=== PATIENT | male | born 1960 | race Caucasian/White ===

== ENCOUNTER 2024-11-16 17:31 | Inpatient (IN) ==
[2024-11-16 18:23] LABS: Hematocrit (blood only) 47.6 % (42.0-52.0); Hemoglobin 16.7 g/dl (14.0-18.0); Immature Granulocytes # (auto) 0.04 K/uL (0.01-0.20); Immature Granulocytes % (auto) 0.3 %; Mean Corpuscular Hemoglobin 30.3 pg (25.0-34.0); Mean Corpuscular Volume 86.2 fL (80.0-100.0); Platelet Count 197 K/uL (130-400); RDW Standard Deviation 39.8 fL (36.4-46.3); Red Blood Count 5.52 M/uL (4.70-6.10); White Blood Count 11.54 K/ul (4.8-10.8)
[2024-11-16 18:41] LABS: Alanine Aminotransferase 20.0 U/L (7-52); Albumin Globulin Ratio 1.2 (0.9-2); Alkaline Phosphatase 45.0 U/L (34-104); Anion Gap 10.0 (3-11); Bilirubin,Total 0.7 mg/dl (0.2-1.0); Blood Urea Nitrogen 27.0 mg/dl (6-23); Calcium 9.8 mg/dl (8.6-10.3); Carbon Dioxide 26.0 mmol/L (21-32); Chloride 101.0 mmol/L (98-107); Creatinine Clr Calc Pharmacy 142.5 ml/min; Globulin 3.5 gm/dl (2.5-4.0); Glucose 127.0 mg/dl (70-99(Fasting)); Potassium 3.7 mmol/L (3.5-5.1); Sodium 137.0 mmol/L (136-145); Total Protein 7.7 gm/dl (6.0-8.3)
[2024-11-16 18:51] LABS: INR 1.0 (0.9-1.1); Partial Thromboplastin Time 26 Seconds (21-31); Prothrombin Time 10.5 Seconds (9.0-12.0)
[2024-11-16] MEDS: ASPIRIN 81 MG CHEW PO STA (19:51)
--- NOTE | 2024-11-16 20:12 | XRay Report ---
Single frontal view of the chest No comparison Impression No acute pulmonary pathology Electronically signed by Chris Westfall 11-16-2024 8:10 PM
[2024-11-16 21:19] LABS: Cholesterol 181.0 mg/dl (0-200); HDL Cholesterol 50.0 mg/dl; Triglycerides 77.0 mg/dl (0-150)
--- NOTE | 2024-11-16 21:44 | History & Physical Report ---
Date of Service November 16, 2024 Assessment & Plan (1) Elevated troponin: (2) Exertional dyspnea: (3) Hypertension: Plan This is a 64 y/o M PMHx HTN, HLD who is presented to ED with exertional dyspnea. Patient states he first noticed symptoms yesterday when he was working around the house, climbing ladders when he felt chest tightness and was more out of breath than usual and was associated with dizziness. The second episode occurred tonight when patient was at work and was taking out garbage/walking up small hills when he noticed the onset of similar chest tightness and dyspnea. Pain is located below sternum, does not radiate, and is relieved with rest. Of note, patient states he had a charley horse in the right calf two days prior to symptom onset which has since resolved. Denies recent long-distance travel, immobilization periods, and recent surgery. Denies previous significant cardiac history. Denies alcohol and tobacco use, however does use medical marijuana. Denies nausea/vomiting/abdominal pain. Patient did have BL venous doppler completed 07/29/24 due to bilateral LE swelling noted at his PCP visit in July of this year, which has been read as negative for not DVT in BLE, above knee. ED labs showing initial elevated troponin 621.5 which up-trended to 680.6 CBC with slight elevation in WBC at 11.5, H&H 16.7 & 47.6. BMP nonactionable. EKG showing sinus tachycardia without evidence of infarct. CXR w/o acute pulmonary pathology. Patient is being admitted for evaluation of exertional dyspnea in the setting of elevated troponin. #chest pain/exertional dyspnea/elevated troponin - patient well-appearing on exam, responding appropriately, speaking in clear full sentences in no acute distress. He was without chest pain during my exam. Slightly hypertensive and remained tachycardiac at bedside. Concern at this time, given exertional chest pain and troponin elevation is possibly PE vs NSTEMI - venous doppler BL LE ordered and pending ; if needed can consider D-dimer vs CT PE - echo ordered and pending - begin heparin drip, ASA 81 mg daily - optimize BP control - can continue home lisinopril-HCTZ 20-25mg - cardiology consulted - NPO at midnight - EKG as needed for chest pain - O2 as needed - trend troponin - pain control with tylenol and morphine prn ; sublingual nitro prn - A1c, lipid panel ordered - may have to consider transitioning to high- intensity statin - CBC, BMP qAM #HTN - patient hypertensive on admission - 170s/100s while at bedside - continue home lisinopril-HCTZ 20-25 mg daily #HLD - repeat fasting lipid panel and A1c ordered - continue home pravastatin 10 mg daily - can consider high-intensity statin ; per PCP note, patient did not tolerate atorvastatin or rosuvastatin due to GI symptoms and joint pains DVT: heparin drip as above Dispo: PCU History of Present Illness Chief Complaint: exertional dyspnea Primary Care Provider: Lawson Vasquez DO Juan Luis Tafoya is a 64 y/o M PMHx HTN, HLD who is presented to ED with exertional dyspnea. Patient states he first noticed symptoms yesterday when he was working around the house, climbing ladders when he felt chest tightness and was more out of breath than usual and was associated with dizziness. The second episode occurred tonight when patient was at work and was taking out garbage/walking up small hills when he noticed the onset of similar chest tightness and dyspnea. Pain is located below sternum, does not radiate, and is relieved with rest. Of note, patient states he had a charley horse in the right calf two days prior to symptom onset which has since resolved. Denies recent long-distance travel, immobilization periods, and recent surgery. Denies previous significant cardiac history. Denies alcohol and tobacco use, however does use medical marijuana. Denies nausea/vomiting/abdominal pain. Patient did have BL venous doppler completed 07/29/24 due to bilateral LE swelling noted at his PCP visit in July of this year, which has been read as negative for not DVT in BLE, above knee. ED labs showing initial elevated troponin 621.5 which up-trended to 680.6 CBC with slight elevation in WBC at 11.5, H&H 16.7 & 47.6. BMP nonactionable. EKG showing sinus tachycardia without evidence of infarct. CXR w/o acute pulmonary pathology. Patient is being admitted for evaluation of exertional dyspnea in the setting of elevated troponin. Allergies Allergy/AdvReac Type Severity Reaction Status Date / Time No Known Drug Allergies Allergy Verified 07/22/24 13:57 Home Medications Medication Instructions Recorded Confirmed Type Medical Marijuana 1 dose PO UD PRN Pain 05/26/23 11/16/24 History tadalafil 10 mg tablet 10 mg PO DAILY PRN sexual activity 07/22/24 11/16/24 Rx #10 tabs lisinopril 20 1 tab PO DAILY 11/16/24 11/16/24 History mg-hydrochlorothiazide 25 mg tablet meloxicam 15 mg tablet 15 mg PO DAILY 11/16/24 11/16/24 History pravastatin 10 mg tablet 10 mg PO DAILY 11/16/24 11/16/24 History Past Med/Surg History Problem List Chest pain (Acute) Exertional dyspnea Elevated troponin Sensorineural hearing loss (SNHL) of both ears Colon cancer screening Encounter for pre-operative examination Pain in both feet Hypertension Hyperlipidemia Medical History Arthritis History of skull fracture born breach Surgical History History of colonoscopy 06/05/23, repeat 5 years 2028 History of tooth extraction H/O metal removed from eye History of myringotomy History of tonsillectomy History of laparoscopic cholecystectomy History of total knee replacement Left> September 30 2021 History of rotator cuff surgery left Family History Father Hypertension Other No family history of adverse response to anesthesia Denies family history of Ovarian cancer Prostate cancer Diabetes Myocardial infarction Breast cancer Lung cancer Colorectal cancer Stroke Social History Smoking Status: Current every day smoker Tobacco Type: Cigars Second Hand Exposure: No (in the past); Do You Dip or Chew Tobacco: No; Hx Alcohol Use: No Hx Substance Use: Yes Prescribed Medications: Marijuana Preferred Language: Armenian Visual Impairment: Diminished Hearing Ability: Normal Manager Law Required: No Beliefs That Will Affect Care: None marital status: Current Living Situation: Parent Current Living Situation Comment: with mother current occupational status: employed current occupation: [employer] - [employer] services How many Children do You have: 2 Feels Safe at Home: Yes Childhood Exposure to Second-Hand Smoke: No Diet: regular caffeine: Yes Dental Care, Regularly: Yes Physical Activity Frequency: Daily Seatbelt Use: always Sunscreen Use: Yes Assistive Devices: Glasses Review of Systems Review of Systems: All systems reviewed & are unremarkable except as noted in HPI & below Physical Exam Constitutional: WD/WN, vitals as above Eyes: PERRL, conjunctivae normal, anicteric sclerae Neck: trachea midline, no thyromegaly Respiratory: normal respiratory effort; no respiratory distress, no labored breathing and does not use accessory muscles Auscultation: lungs clear to auscultation bilaterally Cardiovascular: Rate/Rhythm: regular rate and regular rhythm Gastrointestinal (Abdomen): normal bowel sounds, soft, nontender, no hepatosplenomegaly Musculoskeletal: there is noticeable swelling and erythema of R calf > L ; no tenderness to palpation BL LE. Basilio sign negative BL Skin: no rashes, warm and dry Neurologic: PERRL, EOMI, accommodation nl, no face palsy, no dysarthria CN's II-XI intact bilaterally Psychiatric: A+Ox3, euthymic affect Results & Data Results & Data Vital Signs (Past 12 Hours) Vital Signs Temp Pulse Pulse Resp BP BP Pulse Ox 11/16/24 20:30 95 H 16 151/108 H 96 11/16/24 19:45 100 H 11/16/24 19:19 99 H 16 95 11/16/24 19:19 95 11/16/24 19:17 102 H 16 143/116 H 96 11/16/24 19:14 95 11/16/24 17:38 36.5 C 113 H 20 152/99 H 92 O2 Del Method 11/16/24 20:30 Room Air 11/16/24 19:45 11/16/24 19:19 Room Air 11/16/24 19:19 Room Air 11/16/24 19:17 Room Air 11/16/24 19:14 Room Air 11/16/24 17:38 Room Air Laboratory Results Laboratory Results WBC 11.54 K/ul (4.8-10.8) H 11/16/24 18:00 RBC 5.52 M/uL (4.70-6.10) 11/16/24 18:00 Hgb 16.7 g/dl (14.0-18.0) 11/16/24 18:00 Hct 47.6 % (42.0-52.0) 11/16/24 18:00 MCV 86.2 fL (80.0-100.0) 11/16/24 18:00 MCH 30.3 pg (25.0-34.0) 11/16/24 18:00 MCHC 35.1 g/dL (32.0-36.0) 11/16/24 18:00 RDW Std Deviation 39.8 fL (36.4-46.3) 11/16/24 18:00 RDW Coeff of Irma 12.7 % (11.5-14.5) 11/16/24 18:00 Plt Count 197 K/uL (130-400) 11/16/24 18:00 MPV 9.0 fL (9.4-12.4) L 11/16/24 18:00 Immature Gran % (Auto) 0.3 % 11/16/24 18:00 Neut % (Auto) 73.0 % 11/16/24 18:00 Lymph % (Auto) 17.8 % 11/16/24 18:00 Randall % (Auto) 7.4 % 11/16/24 18:00 Eos % (Auto) 1.2 % 11/16/24 18:00 Baso % (Auto) 0.3 % 11/16/24 18:00 Neut # (Auto) 8.42 K/uL (1.40-6.50) H 11/16/24 18:00 Lymph # (Auto) 2.05 K/uL (1.20-3.40) 11/16/24 18:00 Randall # (Auto) 0.85 K/uL (0.11-0.59) H 11/16/24 18:00 Eos # (Auto) 0.14 K/uL (0.00-0.50) 11/16/24 18:00 Baso # (Auto) 0.04 K/uL (0.00-0.20) 11/16/24 18:00 Immature Gran # (Auto) 0.04 K/uL (0.01-0.20) 11/16/24 18:00 PT 10.5 Seconds (9.0-12.0) 11/16/24 18:00 INR 1.0 (0.9-1.1) 11/16/24 18:00 APTT 26 Seconds (21-31) 11/16/24 18:00 PTT Ratio 1.0 11/16/24 18:00 Sodium 137 mmol/L (136-145) 11/16/24 18:00 Potassium 3.7 mmol/L (3.5-5.1) 11/16/24 18:00 Chloride 101 mmol/L (98-107) 11/16/24 18:00 Carbon Dioxide 26 mmol/L (21-32) 11/16/24 18:00 Anion Gap 10 (3-11) 11/16/24 18:00 BUN 27 mg/dl (6-23) H 11/16/24 18:00 Creatinine 0.72 mg/dl (0.6-1.4) 11/16/24 18:00 Est Cr Clr Drug Dosing 142.5 ml/min 11/16/24 18:00 eGFR 102.66 11/16/24 18:00 BUN/Creatinine Ratio 37.5 (10-20) H 11/16/24 18:00 Glucose 127 mg/dl (70-99(Fasting)) H 11/16/24 18:00 Calcium 9.8 mg/dl (8.6-10.3) 11/16/24 18:00 Total Bilirubin 0.7 mg/dl (0.2-1.0) 11/16/24 18:00 AST 20 U/L (13-39) 11/16/24 18:00 ALT 20 U/L (7-52) 11/16/24 18:00 Alkaline Phosphatase 45 U/L (34-104) 11/16/24 18:00 Troponin I High Sens 680.6 pg/ml (0-20) H* 11/16/24 18:00 B-Natriuretic Peptide 66 pg/ml (0-100) 11/16/24 14:45 Total Protein 7.7 gm/dl (6.0-8.3) 11/16/24 18:00 Albumin 4.2 gm/dl (3.4-5.0) 11/16/24 18:00 Globulin 3.5 gm/dl (2.5-4.0) 11/16/24 18:00 Albumin/Globulin Ratio 1.2 (0.9-2) 11/16/24 18:00 Triglycerides 77 mg/dl (0-150) 11/16/24 14:45 Cholesterol 181 mg/dl (0-200) 11/16/24 14:45 LDL Cholesterol, Calc 116 mg/dl 11/16/24 14:45 VLDL Cholesterol, Calc 15 mg/dl (0-30) 11/16/24 14:45 HDL Cholesterol 50 mg/dl 11/16/24 14:45 Cholesterol/HDL Ratio 3.6 (0-5) 11/16/24 14:45 Impressions Chest X-Ray 11/16/24 17:42 Single frontal view of the chest No comparison Impression No acute pulmonary pathology Electronically signed by Chris Westfall 11-16-2024 8:10 PM Supervising Physician Co-Signing Physician Notes Patient seen and examined, chart reviewed, case discussed with Dr. Landry and I agree with the assessment and plan as documented above. In brief, patient is here with exertional dyspnea, some chest discomfort noted over the last two days. Exam with warmth, redness and swelling of RLE Otherwise unremarkable - +S1/S2, regular, no m/r/g Lungs CTA Abd soft, NT/ND Labs and images reviewed Trop 621--> 680 Venous duplex RLE performed - read pending Assessment/Plan -Trend troponin to peak -Heparin gtt -Check 2D echo -Continue ASA, Pravastatin, Lisinopril -Remainder as above Resident Activity Tracking Resident Involvement: Resident Care Provided Care Provided: Adult Hospital Medicine
[2024-11-16] MEDS: Heparin IV Adult Wt-Based Standard w/ INITIAL Bolus Protocol IV STA (21:49)
[2024-11-16] MEDS: HEPARIN 25000 UNIT/500 ML D5W 25,000 UNITS/500 ML BAG IV SCH (21:57)
[2024-11-16] MEDS: HEPARIN SOD (PORCINE) 1000 UNIT/ML IV ONE (21:57)
[2024-11-16] MEDS ORDERED: MoRPHine SULFATE 2 MG/ML CARP IV PRN (22:29)
[2024-11-16] MEDS ORDERED: ONDANSETRON INJ 2 MG/ML 2 ML VIAL IV PRN (22:29)
[2024-11-16] MEDS ORDERED: NITROGLYCERIN SL 0.4 MG/TAB TAB SL PRN (22:29)
[2024-11-16] MEDS ORDERED: POLYETHYLENE (MIRALAX) 17 GM PACK PO PRN (22:29)
[2024-11-16] MEDS ORDERED: ACETAMINOPHEN 325 MG TAB PO PRN (22:29)
[2024-11-16] MEDS ORDERED: MELATONIN 3 MG TAB PO PRN (22:29)
--- NOTE | 2024-11-16 22:51 | Emergency Department Note ---
History of Present Illness General Chief Complaint: Cardiac Assessment Stated Complaint: COLD SWEATING, SOB, TIGHT CHEST Time Seen by Provider: 11/16/24 19:40 History of Present Illness Provider Complaint: chest pain Onset (ago): day(s) 2 Duration: intermittent Onset: during exertion Pain Location: substernal Pain Radiation: none Severity: severe Current Pain Intensity: 0 Quality: + aching, + heaviness and + dull Relieved By: + rest Exacerbated By: + exertion Context: no recent illness, no recent surgery, no recent immobilization, no recent travel, no trauma/injury or no new medications Associated symptoms: + diaphoresis and + dyspnea; no nausea, no vomiting or no palpitations Treatments prior to arrival: none Home Medications Medication Instructions Recorded Confirmed Type Medical Marijuana 1 dose PO UD PRN Pain 05/26/23 11/16/24 History tadalafil 10 mg tablet 10 mg PO DAILY PRN sexual activity 07/22/24 11/16/24 Rx #10 tabs lisinopril 20 1 tab PO DAILY 11/16/24 11/16/24 History mg-hydrochlorothiazide 25 mg tablet meloxicam 15 mg tablet 15 mg PO DAILY 11/16/24 11/16/24 History pravastatin 10 mg tablet 10 mg PO DAILY 11/16/24 11/16/24 History Allergies Allergy/AdvReac Type Severity Reaction Status Date / Time No Known Drug Allergies Allergy Verified 07/22/24 13:57 Past Med/Surg History Problem List (Updated 11/16/24 @ 22:51 by Kehinde Partida MD) Chest pain (Acute) Exertional dyspnea Elevated troponin Sensorineural hearing loss (SNHL) of both ears Colon cancer screening Encounter for pre-operative examination Pain in both feet Hypertension Hyperlipidemia Medical History Arthritis History of skull fracture born breach Surgical History History of colonoscopy 06/05/23, repeat 5 years 2028 History of tooth extraction H/O metal removed from eye History of myringotomy History of tonsillectomy History of laparoscopic cholecystectomy History of total knee replacement Left> September 30 2021 History of rotator cuff surgery left Family History Father Hypertension Other No family history of adverse response to anesthesia Denies family history of Ovarian cancer Prostate cancer Diabetes Myocardial infarction Breast cancer Lung cancer Colorectal cancer Stroke Social History Smoking Status: Current every day smoker Tobacco Type: Cigars Second Hand Exposure: No (in the past); Do You Dip or Chew Tobacco: No; Hx Alcohol Use: No Hx Substance Use: Yes Prescribed Medications: Marijuana Preferred Language: Romanian Visual Impairment: Diminished Hearing Ability: Normal Content Analyst Required: No Beliefs That Will Affect Care: None marital status: Current Living Situation: Parent Current Living Situation Comment: with mother current occupational status: employed current occupation: [employer] - [employer] services How many Children do You have: 2 Feels Safe at Home: Yes Childhood Exposure to Second-Hand Smoke: No Diet: regular caffeine: Yes Dental Care, Regularly: Yes Physical Activity Frequency: Daily Seatbelt Use: always Sunscreen Use: Yes Assistive Devices: Glasses Physical Exam Vital Signs Vital Signs - 24 hr 11/16/24 17:38 11/16/24 19:14 11/16/24 19:17 Temperature 36.5 C Temperature Source Temporal Artery Scan Pulse Rate 113 H Pulse Rate [Right Finger] 102 H Pulse Rhythm Pulse Rhythm [Right Finger] Regular Respiratory Rate 20 16 Respiratory Effort / Characteristics Non-Labored Spontaneous Respiratory Depth Normal Normal Respiratory Pattern Regular Blood Pressure 152/99 H Blood Pressure [Right Arm] 143/116 H Blood Pressure Mean 116 Blood Pressure Mean [Right Arm] 125 Pulse Oximetry 92 95 96 Oxygen Delivery Method Room Air Room Air Room Air Sepsis Recent Fever Within 48 Hours No Sepsis New/Unexplained Change in Mental Status N/A Sepsis Action Taken by Nursing No Action Required 11/16/24 19:19 11/16/24 19:19 11/16/24 19:45 Temperature Temperature Source Pulse Rate 99 H 100 H Pulse Rate [Right Finger] Pulse Rhythm Regular Pulse Rhythm [Right Finger] Respiratory Rate 16 Respiratory Effort / Characteristics Respiratory Depth Respiratory Pattern Blood Pressure Blood Pressure [Right Arm] Blood Pressure Mean Blood Pressure Mean [Right Arm] Pulse Oximetry 95 95 Oxygen Delivery Method Room Air Room Air Sepsis Recent Fever Within 48 Hours Sepsis New/Unexplained Change in Mental Status Sepsis Action Taken by Nursing 11/16/24 20:30 Temperature Temperature Source Pulse Rate Pulse Rate [Right Finger] 95 H Pulse Rhythm Pulse Rhythm [Right Finger] Regular Respiratory Rate 16 Respiratory Effort / Characteristics Non-Labored Respiratory Depth Normal Respiratory Pattern Blood Pressure Blood Pressure [Right Arm] 151/108 H Blood Pressure Mean Blood Pressure Mean [Right Arm] 122 Pulse Oximetry 96 Oxygen Delivery Method Room Air Sepsis Recent Fever Within 48 Hours Sepsis New/Unexplained Change in Mental Status Sepsis Action Taken by Nursing Physical Exam GENERAL: oriented to person, place, and time. appears well-developed and well- nourished. HENT: Exam performed. - Head: Normocephalic and atraumatic. EYES: Conjunctivae and EOM are normal. Right eye exhibits no discharge. Left eye exhibits no discharge. No scleral icterus. NECK: Normal range of motion. Neck supple. No JVD present. CV: Normal rate, regular rhythm, normal heart sounds and intact distal pulses. One Plus pitting edema of the bilateral lower extremities. Palpable radial pulses bue. PULM/CHEST: Effort normal and breath sounds normal. No respiratory distress. No stridor. no wheezes. no rales. ABD: The abdomen is soft. There is no tenderness. NEURO: Motor and sensation grossly intact. SKIN: Skin is warm and dry. He is not diaphoretic. PSYCH: normal mood and affect. Behavior is normal. Judgment and thought content normal. Course Administered Medications Heparin Sodium/Dextrose (Heparin 38597 Unit/500 Ml D5w) 25,000 units in 500 mls @ 35 mls/hr IV .[id number] [facility]; Protocol Stop: 12/16/24 21:14 Last Admin: 11/16/24 21:57 Dose: 1,750 units/hr, 35 mls/hr Documented By: MIKKI Co-signed By: PADMA Discontinued Medications Aspirin (Aspirin 81 Mg Chew) 324 mg PO NOW STA Stop: 11/16/24 19:47 Last Admin: 11/16/24 19:51 Dose: 324 mg Documented By: PADMA Heparin Sodium (Porcine) (Heparin Sod (Porcine) 1000 Unit/Ml) 1 units IV NOW ONE Stop: 11/16/24 21:12 Last Admin: 11/16/24 21:57 Dose: 8,000 units Documented By: MIKKI Co-signed By: PADMA Heparin Sodium/Dextrose (Heparin Iv Adult Wt-Based Standard W/ Initial Bolus Protocol) 1 each IV NOW STA; Protocol Stop: 11/16/24 20:54 Last Admin: 11/16/24 21:49 Dose: Not Given Documented By: MIKKI Medical Decision Making Laboratory Data Attestation: I reviewed the patient's lab results. 11/16/24 18:00 11/16/24 18:00 Labs: Lab Results 11/16/24 11/16/24 Range/Units 14:45 18:00 WBC 11.54 H (4.8-10.8) K/ul RBC 5.52 (4.70-6.10) M/uL Hgb 16.7 (14.0-18.0) g/dl Hct 47.6 (42.0-52.0) % MCV 86.2 (80.0-100.0) fL MCH 30.3 (25.0-34.0) pg MCHC 35.1 (32.0-36.0) g/dL RDW Std Deviation 39.8 (36.4-46.3) fL RDW Coeff of Irma 12.7 (11.5-14.5) % Plt Count 197 (130-400) K/uL MPV 9.0 L (9.4-12.4) fL Immature Gran % (Auto) 0.3 % Neut % (Auto) 73.0 % Lymph % (Auto) 17.8 % Spink % (Auto) 7.4 % Eos % (Auto) 1.2 % Baso % (Auto) 0.3 % Neut # (Auto) 8.42 H (1.40-6.50) K/uL Lymph # (Auto) 2.05 (1.20-3.40) K/uL Spink # (Auto) 0.85 H (0.11-0.59) K/uL Eos # (Auto) 0.14 (0.00-0.50) K/uL Baso # (Auto) 0.04 (0.00-0.20) K/uL Immature Gran # (Auto) 0.04 (0.01-0.20) K/uL PT 10.5 (9.0-12.0) Seconds INR 1.0 (0.9-1.1) APTT 26 (21-31) Seconds PTT Ratio 1.0 Sodium 137 (136-145) mmol/L Potassium 3.7 (3.5-5.1) mmol/L Chloride 101 (98-107) mmol/L Carbon Dioxide 26 (21-32) mmol/L Anion Gap 10 (3-11) BUN 27 H (6-23) mg/dl Creatinine 0.72 (0.6-1.4) mg/dl Est Cr Clr Drug Dosing 142.5 ml/min eGFR 102.66 BUN/Creatinine Ratio 37.5 H (10-20) Glucose 127 H (70-99(Fasting)) mg/dl Calcium 9.8 (8.6-10.3) mg/dl Total Bilirubin 0.7 (0.2-1.0) mg/dl AST 20 (13-39) U/L ALT 20 (7-52) U/L Alkaline Phosphatase 45 (34-104) U/L Troponin I High Sens 621.5 H* 680.6 H* (0-20) pg/ml B-Natriuretic Peptide 66 (0-100) pg/ml Total Protein 7.7 (6.0-8.3) gm/dl Albumin 4.2 (3.4-5.0) gm/dl Globulin 3.5 (2.5-4.0) gm/dl Albumin/Globulin Ratio 1.2 (0.9-2) Triglycerides 77 (0-150) mg/dl Cholesterol 181 (0-200) mg/dl LDL Cholesterol, Calc 116 mg/dl VLDL Cholesterol, Calc 15 (0-30) mg/dl HDL Cholesterol 50 mg/dl Cholesterol/HDL Ratio 3.6 (0-5) Imaging Data Chest x-ray: Attestation: I personally reviewed and interpreted this imaging study as follows: My impression: Chest x-ray negative. Airway clear. No pneumothorax. No consolidation. No cardiomegaly or cephalization.. No free air under the diaphragm. No fractures of the skeletal structures. Radiologist's impression: Chest X-Ray 11/16/24 17:42 Single frontal view of the chest No comparison Impression No acute pulmonary pathology Electronically signed by Chris Westfall 11-16-2024 8:10 PM ECG Data Attestation: I personally reviewed and interpreted this ECG as follows: Indication: chest pain Rate (beats per minute): 98 Rhythm: normal sinus Findings: no ST depression, no ST elevation or no prolonged QT MDM Narrative Cardiac monitoring: An order was placed for continuous cardiac monitoring. The monitor shows a rate of 90 with sinus rhythm interpreted by me Patient was seen during a time of extreme volume and extreme acuity. Nursing triage protocols were initiated labs and imaging was conducted by protocol in the triage area. Labs show elevated troponin. Patient reporting no chest pain while at rest, only with exertion. Patient will be admitted to the hospitalist team. Impression & Plan Chest pain Discharge Plan Visit Data Chief Complaint: Cardiac Assessment Stated Complaint: COLD SWEATING, SOB, TIGHT CHEST ED Provider: Kehinde Partida Discharge Problem: Chest pain Patient Disposition: Admitted As Inpatient Condition: Fair Discharge Instructions Interventions: ED Discharge Assessment Last Done: 11/16/24 22:29 Discharge Problem: Chest pain Qualifiers: Chest pain type: unspecified Qualified Code(s): R07.9 - Chest pain, unspecified
--- NOTE | 2024-11-16 23:58 | Billing Data ---
Date of Service November 16, 2024 Coding Level of Care Code 69223 INT INP/OBS CARE
--- NOTE | 2024-11-17 00:35 | Ultrasound Report ---
Exam(s): US VENOUS BILATERAL LOWER EXTREMITIES EXAM: US Duplex Bilateral Lower Extremities Veins CLINICAL HISTORY: Reason for exam: calf pain. TECHNIQUE: Real-time duplex ultrasound scan of the bilateral lower extremity veins integrating B-mode two-dimensional vascular structure, Doppler spectral analysis, color flow Doppler imaging and compression. COMPARISON: No relevant prior studies available. FINDINGS: Right deep veins: Unremarkable. No DVT in the right common femoral, femoral, proximal deep femoral or popliteal veins. The veins demonstrate normal color flow, are normally compressible, with normal phasic flow and/or augmentation response. Occlusive thrombus is seen in the right posterior tibial vein. Right superficial veins: Unremarkable. No thrombus in the visualized right great saphenous vein. Left deep veins: Unremarkable. No DVT in the left common femoral, femoral, proximal deep femoral or popliteal veins. The veins demonstrate normal color flow, are normally compressible, with normal phasic flow and/or augmentation response. Left superficial veins: Unremarkable. No thrombus in the visualized left great saphenous vein. Soft tissues: No acute findings. No popliteal cyst. IMPRESSION: Occlusive thrombus in the right posterior tibial vein. No evidence of DVT from the common femoral veins through the popliteal veins. Communications: Call Doctor DVT – acute, progressing Electronically signed by: Sarkis Jasso MD 11/17/24 00:34 AM
[2024-11-17] MEDS: OPTIRAY 320 125ml IV ONE (01:48)
--- NOTE | 2024-11-17 02:16 | CT Scan Report ---
EXAM: CT angio chest PE protocol CLINICAL HISTORY: PE. TECHNIQUE: Contiguous 3.[address] angiographic images of the chest were acquired with the administration of intravenous contrast. Coronal and sagittal reconstructions were obtained. 118 ml Optiray 320 was administered for post-contrast images. One of these 3D techniques was utilized: Maximum Intensity Pixel (MIP), 3D Reconstructed Images, Volume Rendered Images, Surface Shaded Rendering. One of the following dose reduction techniques were utilized for this exam: Automated exposure control, adjustment of the mA and/or kV according to patient size, and use of iterative reconstruction. COMPARISON: 11/16/2024 CR reviewed. FINDINGS: Pulmonary Arteries: Multiple linear and rounded filling defects are seen in the segmental and subsegmental branches of both pulmonary arteries, representing acute thromboembolism. The pulmonary trunk measures 3.0 cm. Aorta: The thoracic aorta is normal in caliber. No evidence of aneurysm, dissection, or significant atherosclerotic changes. Aortic arch and descending thoracic aorta are unremarkable. Superior Vena Cava (SVC) and Inferior Vena Cava (IVC): Normal opacification and caliber. No evidence of thrombus or obstruction. Coronary Arteries: Coronary arteries are well-opacified. No significant stenosis or atherosclerotic changes. Mediastinum: No mediastinal mass or lymphadenopathy. Normal appearance of the thymus. Heart: Normal size and morphology of the heart. No pericardial effusion. Lungs: Diffuse groundglass opacities seen in the right lower lobe. 6.6 mm diffusely calcified nodule seen in the left upper lobe likely calcified granuloma. Bones: No fractures or lytic/sclerotic lesions of the visualized bony structures. Moderate degenerative changes are seen in the thoracic spine. Soft Tissues: Normal appearance of the visualized soft tissues. No abnormal masses or fluid collections. The left adrenal gland appears bulky with calcifications. IMPRESSION: 1. Multiple linear and rounded filling defects are seen in the segmental and subsegmental branches of both pulmonary arteries, representing acute thromboembolism. 2. Diffuse groundglass opacities seen in the right lower lobe. These findings are likely due to pulmonary infection, would recommend clinical and lab correlation. Electronically signed by Kyle Clark 11-17-2024 02:16 AM
[2024-11-17 04:57] LABS: Hematocrit (blood only) 43.9 % (42.0-52.0); Hemoglobin 15.8 g/dl (14.0-18.0); Immature Granulocytes # (auto) 0.03 K/uL (0.01-0.20); Immature Granulocytes % (auto) 0.3 %; Mean Corpuscular Hemoglobin 31.0 pg (25.0-34.0); Mean Corpuscular Volume 86.1 fL (80.0-100.0); Platelet Count 170 K/uL (130-400); RDW Standard Deviation 39.6 fL (36.4-46.3); Red Blood Count 5.10 M/uL (4.70-6.10); White Blood Count 8.74 K/ul (4.8-10.8)
[2024-11-17 05:10] LABS: Anion Gap 5.0 (3-11); Blood Urea Nitrogen 22.0 mg/dl (6-23); Calcium 8.9 mg/dl (8.6-10.3); Carbon Dioxide 28.0 mmol/L (21-32); Chloride 102.0 mmol/L (98-107); Creatinine Clr Calc Pharmacy 148.7 ml/min; Glucose 136.0 mg/dl (70-99(Fasting)); Potassium 3.5 mmol/L (3.5-5.1); Sodium 135.0 mmol/L (136-145)
[2024-11-17 05:30] LABS: ANTI-Xa, UFH(UnfractionatedHep 0.73 IU/ml (0.3-0.7)
[2024-11-17 07:09] LABS: Hemoglobin A1C 5.5 % (4.5-5.6)
[2024-11-17] MEDS: ASPIRIN 81 MG ECTAB PO SCH (07:59)
[2024-11-17] MEDS: LISINOPRIL/HCTZ 20/25MG 1 TAB PO SCH (08:00)
[2024-11-17] MEDS: PRAVASTATIN SOD 10 MG TAB PO SCH (08:01)
--- NOTE | 2024-11-17 11:29 | XCELERA ---
[id number]
[2024-11-17 11:30] VITALS: RESP 18
--- NOTE | 2024-11-17 11:49 | Hospitalist Progress Note ---
Date of Service November 17, 2024 Assessment & Plan (1) Acute pulmonary embolism without acute cor pulmonale: Plan: Currently on heparin drip. Fortunately he is on room air. He will be switched to Eliquis tomorrowNovember 18 (2) Acute superficial venous thrombosis of right lower extremity: Plan: Seen on venous Doppler. The patient states that he has persistent swelling of the right lower extremity below the knee so this could possibly be chronic in nature. Nevertheless, he is on a heparin drip and will be switched over to Eliquis at the time of discharge (3) Elevated troponin: Plan: No acute EKG changes. Now downtrending. Chest discomfort on admission has resolved. Thought to be due to acute PE. He will need outpatient stress testing at a later date (4) Exertional dyspnea: Plan: Thought to be due to acute bilateral PE. Cardiac ischemia needs to be ruled out however. He will need outpatient stress testing at a later date (5) Hypertension: Plan: Stable. Continue current medical management Plan Hopeful discharge to home tomorrNovember 18 Admission and Anticipated Discharge Date Admission Date: November 16, 2024 Subjective Alert and oriented. Hemodynamically stable. No chest pain or shortness of breath. Chest CTA reveals evidence of bilateral pulmonary emboli. Fortunately he remains on room air. There is evidence of right posterior tibial vein thrombosis. This is likely source of the bilateral PE. Troponin was elevated on admission but is downtrending. Cardiac echo is limited due to poor acoustic window with estimated ejection fraction 45%. Regional wall motion abnormalities cannot be ruled out. Right ventricular systolic function cannot be assessed. He remains on a heparin drip. Hopefully he can be switched to oral Eliquis tomorrowNovember 18, and discharged. He will need outpatient stress testing at a later date. Review of Systems 2 Review of Systems: Constitutionalno fever or chills ENTno blurred vision, no double vision, no epistaxis, no sore throat Respiratoryno cough, no wheezing, no shortness of breath Cardiacno palpitations, no chest pain, no syncope Tiarra nausea, vomiting, diarrhea, melena, hematochezia GUno urinary retention, no urinary incontinence, no dysuria, no hematuria Musculoskeletalno joint pain, no muscle tenderness. Chronic right lower extremity edema Skinno bruising, no rashes, no pruritus Neurono isolated weakness, no paresthesia, no weakness Psychno depression, no anxiety Physical Exam 2 Physical Exam: General-alert and oriented x3, no fever, no chills HEENT-head atraumatic and normocephalic, pupils equal and reactive to light, extraocular muscles intact Neck-no lymphadenopathy or thyromegaly, trachea midline Chest-clear to auscultation. No rales, wheezing or rhonchi Cardiac-regular rate and rhythm, normal S1 and S2 Abdomen-normal bowel sounds, no hepatosplenomegaly Extremities-no cyanosis, clubbing. Chronic 1+ pitting edema right lower extremity below the knee Neuro-cranial nerves II through XII intact, motor and sensory function within normal limits, strength symmetrical, no focal deficits Psych-normal affect, normal mood Results & Data Results & Data Vital Signs (Past 12 Hours) Vital Signs Temp Pulse Pulse Resp BP Pulse Ox O2 Del Method 11/17/24 11:30 36.8 C 90 18 142/93 H 94 Room Air 11/17/24 09:39 86 11/17/24 07:58 36.4 C L 92 H 19 133/93 95 Room Air 11/17/24 07:37 Room Air 11/17/24 05:38 Room Air 11/17/24 03:50 36.4 C L 83 18 141/97 H 94 Room Air Laboratory Results 11/17/24 04:15 11/17/24 04:15 PG Care Time/CCT Total # of Minutes Spent Total Time Spent with Patient: Total time spent is greater than 50% in coordination of care (as documented) at patient's floor/unit and/or counseling patient: Coding Level of Care Code 08931 SUB INP/OBS CARE 3/50MIN Diagnoses Acute pulmonary embolism without acute cor pulmonale I26.99 Acute superficial venous thrombosis of right lower extremity I82.811 Elevated troponin R79.89 Exertional dyspnea R06.09 Hypertension I10
[2024-11-17 11:53] LABS: ANTI-Xa, UFH(UnfractionatedHep 0.60 IU/ml (0.3-0.7)
--- NOTE | 2024-11-17 12:26 | Electrocardiogram Report ---
Test Reason : Blood Pressure : */* mmHG Vent. Rate : 116 BPM Atrial Rate : 116 BPM P-R Int : 166 ms QRS Dur : 86 ms QT Int : 328 ms P-R-T Axes : 69 -26 64 degrees QTcB Int : 455 ms Sinus tachycardia with Premature atrial complexes Nonspecific ST abnormality Abnormal ECG No previous ECGs available Confirmed by Nestor Huerta ([id number]) on 11/17/2024 12:26:25 PM Referred By: REFERRED SELF Confirmed By: Nestor Huerta
[2024-11-18 06:08] LABS: Hematocrit (blood only) 45.7 % (42.0-52.0); Hemoglobin 16.0 g/dl (14.0-18.0); Immature Granulocytes # (auto) 0.04 K/uL (0.01-0.20); Immature Granulocytes % (auto) 0.5 %; Mean Corpuscular Hemoglobin 30.3 pg (25.0-34.0); Mean Corpuscular Volume 86.6 fL (80.0-100.0); Platelet Count 180 K/uL (130-400); RDW Standard Deviation 39.4 fL (36.4-46.3); Red Blood Count 5.28 M/uL (4.70-6.10); White Blood Count 8.30 K/ul (4.8-10.8)
[2024-11-18 06:27] LABS: Anion Gap 7.0 (3-11); Blood Urea Nitrogen 18.0 mg/dl (6-23); Calcium 9.1 mg/dl (8.6-10.3); Carbon Dioxide 27.0 mmol/L (21-32); Chloride 101.0 mmol/L (98-107); Creatinine Clr Calc Pharmacy 131.7 ml/min; Glucose 126.0 mg/dl (70-99(Fasting)); Potassium 3.6 mmol/L (3.5-5.1); Sodium 135.0 mmol/L (136-145)
[2024-11-18 06:30] LABS: ANTI-Xa, UFH(UnfractionatedHep 0.51 IU/ml (0.3-0.7)
[2024-11-18] MEDS: APIXABAN 5 MG TABLET PO SCH (08:55)
--- NOTE | 2024-11-18 10:23 | Discharge Summary ---
Discharge Summary Date of Service November 18, 2024 Principal Dx & Hospital Course #1 = Principal Diagnosis (1) Acute pulmonary embolism without acute cor pulmonale: Treated while hospitalized with heparin drip. Switch to Eliquis 5 mg twice daily 8 discharge. Fortunately he is on room air. (2) Acute superficial venous thrombosis of right lower extremity: Seen on venous Doppler. The patient states that he has persistent swelling of the right lower extremity below the knee so this could possibly be chronic in nature. Nevertheless, he was treated with a heparin drip while hospitalized and then switched to Eliquis at the time of discharge. (3) Elevated troponin: No acute EKG changes. Now downtrending. Chest discomfort on admission has resolved. Thought to be due to acute PE. He will need outpatient stress testing at a later date (4) Exertional dyspnea: Thought to be due to acute bilateral PE. Cardiac ischemia needs to be ruled out however. He will need outpatient stress testing at a later date (5) Hypertension: Stable. Continue current medical management Plan Home today, November 18. He will see his PCP as soon as possible for scheduling of outpatient stress testing. Admission HPI Per Admitting Provider Juan Luis Tafoya is a 64 y/o M PMHx HTN, HLD who is presented to ED with exertional dyspnea. Patient states he first noticed symptoms yesterday when he was working around the house, climbing ladders when he felt chest tightness and was more out of breath than usual and was associated with dizziness. The second episode occurred tonight when patient was at work and was taking out garbage/walking up small hills when he noticed the onset of similar chest tightness and dyspnea. Pain is located below sternum, does not radiate, and is relieved with rest. Of note, patient states he had a charley horse in the right calf two days prior to symptom onset which has since resolved. Denies recent long-distance travel, immobilization periods, and recent surgery. Denies previous significant cardiac history. Denies alcohol and tobacco use, however does use medical marijuana. Denies nausea/vomiting/abdominal pain. Patient did have BL venous doppler completed 07/29/24 due to bilateral LE swelling noted at his PCP visit in July of this year, which has been read as negative for not DVT in BLE, above knee. ED labs showing initial elevated troponin 621.5 which up-trended to 680.6 CBC with slight elevation in WBC at 11.5, H&H 16.7 & 47.6. BMP nonactionable. EKG showing sinus tachycardia without evidence of infarct. CXR w/o acute pulmonary pathology. Patient is being admitted for evaluation of exertional dyspnea in the setting of elevated troponin. Discharge Exam General-alert and oriented x3, no fever, no chills HEENT-head atraumatic and normocephalic, pupils equal and reactive to light, extraocular muscles intact Neck-no lymphadenopathy or thyromegaly, trachea midline Chest-clear to auscultation. No rales, wheezing or rhonchi Cardiac-regular rate and rhythm, normal S1 and S2 Abdomen-normal bowel sounds, no hepatosplenomegaly Extremities-no cyanosis, clubbing. Chronic 1+ pitting edema right lower extremity below the knee Neuro-cranial nerves II through XII intact, motor and sensory function within normal limits, strength symmetrical, no focal deficits Psych-normal affect, normal mood Discharge Plan Discharge Items Patient Disposition: Home - Self-Care Reason For Visit: EXERTIONAL DYSPNEA Discharge Diagnosis: Bilateral PE, right posterior tibial vein thrombosis, elevated troponin without acute coronary syndrome Condition on Discharge: Good Activity: Resume your previous activity Non-emergency contact: Primary Care Provider Call non-emergency contact if: you have any medication questions and your symptoms worsen Follow-up/Referrals: Lawson Vasquez DO [Primary Care Provider] - Diet: Regular and Heart Healthy Add Attending Provider Instructions: Take Eliquis 5 mg twice daily for blood thinner. A prescription has been sent to [facility] pharmacy on [address]. Follow-up with PCP as soon as possible to set up outpatient stress testing Pending Studies at Discharge: No Stand-Alone Forms: [facility] Medications and DC Order Prescriptions: New Eliquis 5 mg Tablet 5 mg PO BID Qty: 60 0RF aspirin 81 mg Tablet,Delayed Release (Dr/Ec) 81 mg PO QAM Qty: 0 0RF Continued tadalafil 10 mg tablet 10 mg PO DAILY PRN (Reason: sexual activity) Qty: 10 2RF Rx Instructions: administer approximately 30min before sexual activity; do not use more than 1 dose per 24hrs Medical Marijuana 1 dose PO UD PRN (Reason: Pain) Patient Comments: inhalation and po form lisinopril-hydrochlorothiazide 20-25 mg tablet 1 tab PO DAILY Patient Comments: qam pravastatin 10 mg tablet 10 mg PO DAILY meloxicam 15 mg tablet 15 mg PO DAILY Patient Comments: qam Rx Instructions: take 1 tablet by mouth once daily Discharge Orders: Discharge Order (Routine); Ordered 11/18/24 Ordered By: Sarkis Schroeder Admission Data Admit Date/Time: 11/16/24 20:46 Attending Provider: Sarkis Schroeder Admit Provider: Candace Landry Primary Care Provider: Lawson Vasquez Other Providers: Aileen Galarza Hospital Stay Data Consultations 11/16/24 19:48 ED Decision to Admit Stat Diagnostic Imagining Performed 11/16/24 20:53 US venous doppler LE BI Stat 11/17/24 01:15 CT angio chest PE protocol Stat Pending Results Patient Have Any Pending Studies at Discharge: No Discharge Instructions Given to Patient (Per Discharging Provider) Take Eliquis 5 mg twice daily for blood thinner. A prescription has been sent to [facility] pharmacy on [address]. Follow-up with PCP as soon as possible to set up outpatient stress testing Total Time Total Time Spent Total Time Spent (In Minutes): 45 minutes Coding Level of Care Code 67665 INP/OBS DISCH >30 MIN Diagnoses Acute pulmonary embolism without acute cor pulmonale I26.99 Acute superficial venous thrombosis of right lower extremity I82.811 Elevated troponin R79.89 Exertional dyspnea R06.09 Hypertension I10
[2024-11-18 11:05] VITALS: BP 152/109; PULSE 84; TEMP 97.7; O2SAT 95
--- NOTE | 2024-11-18 13:08 | Electrocardiogram Report ---
Test Reason : Blood Pressure : */* mmHG Vent. Rate : 98 BPM Atrial Rate : 98 BPM P-R Int : 184 ms QRS Dur : 86 ms QT Int : 380 ms P-R-T Axes : 63 -17 50 degrees QTcB Int : 485 ms Normal sinus rhythm Normal ECG When compared with ECG of 16-Nov-2024 17:44, Premature atrial complexes are no longer Present Confirmed by Nestor Huerta ([id number]) on 11/18/2024 1:06:44 PM Referred By: REFERRED SELF Confirmed By: Nestor Huerta
--- NOTE | 2024-11-18 17:56 | Electrocardiogram Report ---
Test Reason : Blood Pressure : */* mmHG Vent. Rate : 129 BPM Atrial Rate : 129 BPM P-R Int : 120 ms QRS Dur : 92 ms QT Int : 370 ms P-R-T Axes : * -36 22 degrees QTcB Int : 542 ms Sinus tachycardia Left axis deviation Poor R wave progression, consider anterior CT vs. lead placement vs. LVH Nonspecific ST abnormality Abnormal ECG When compared with ECG of 16-Nov-2024 19:45, No significant change was found Confirmed by Nestor Huerta ([id number]) on 11/18/2024 5:56:12 PM Referred By: REFERRED SELF Confirmed By: Nestor Huerta
== END 2024-11-18 13:25 | disposition home or self-care (01) | DRG 176 ==
LOC: ED 17:31 → EDINP 20:46 → SUATTDRO 20:46 → EDINP 22:29 → 2S 11-17 00:17

== ENCOUNTER 2025-01-26 06:47 | Observation (INO) ==
--- NOTE | 2025-01-26 08:09 | Pre Anesthesia Assessment ---
Date of Service January 26, 2025 Pre Sedation Assessment Vital Signs Temp Pulse Resp BP Pulse Ox O2 Del Method 01/26/25 07:00 36.8 C 79 18 143/90 H 97 Room Air Cardiovascular RRR, no murmur, no edema Respiratory normal respiratory effort, lungs clear to auscultation Pre-Sedation Airway Assessment Smoking Status: Never smoker Hx Sleep Apnea: Yes Short, Thick Neck: No Thyromental Distance: > or= 3.5 Finger Breadths Oral Cavity: + WNL Mallampati Class: III ASA: ASA3 Notes The planned sedation has been discussed with the patient. Informed Consent was obtained. I have identified the patient, determined the appropriateness of sedation and have assessed the patient immediately prior to the procedure. All medicine(s) and interventions are by my order.
[2025-01-26] MEDS: LIDOCAINE 1% LOCAL 20 ML VIAL ONE (08:33)
[2025-01-26] MEDS: NITROGLYCERIN/D5W 100MCG/ML 20ML SYR ONE (08:33)
[2025-01-26] MEDS: niCARdipine 2,000 MCG/20 ML SYR ONE (08:36)
[2025-01-26] MEDS: HEPARIN (PORCINE) 1000 UNIT/ML 10 ML (CATH LAB USE ONLY) ONE ×2 (09:15→09:24)
[2025-01-26] MEDS: OPTIRAY 350 ONE (09:23)
[2025-01-26] MEDS: IODIXANOL (VISIPAQUE) 320 MG/ML 100ML IV ONE (09:24)
[2025-01-26] MEDS: MIDAZOLAM HCL 1 MG/ML 2ML VIAL ONE ×2 (09:24)
[2025-01-26] MEDS: TICAGRELOR 90 MG TAB ONE (09:25)
--- NOTE | 2025-01-26 09:38 | Post Anesthesia Assessment ---
Date of Service January 26, 2025 Post Sedation Assessment Vital Signs Temp Pulse Resp BP Pulse Ox O2 Del Method 01/26/25 07:00 36.8 C 79 18 143/90 H 97 Room Air Recovery Score Activity: Moves 4 extremities Respiration: Deep Breath/Cough Circulation: +/-20% PreAnes Value Consciousness: Fully Awake Oxygen Saturation: > 92% On Room Air Discharge Sedation Level of Care: Fast Track Phase II Post Sedation Plan On clinical assessment, the patient appears to have tolerated the sedation without complications. Patient is recovering as anticipated. Patient will continue to be monitored by nursing and may be discharged when sedation discharge criteria are met per below protocol. Upon Completions of procedure up to 15 minutes continue every 5 minute vital signs and the P.A.R. score; then discharge to a Phase I or Fast Track to Phase II per the following guidelines: * Discharge Patient to appropriate Phase II area if PAR is 8 or greater or return to pre- procedure baseline. The post - procedure orders will be as directed. * If PAR score is less than 8 or not return to pre-procedure baseline then patient will follow Phase I monitoring till PAR is reached for Phase II. The Phase I may be done in procedure room or may call to secure a Phase I area. * If naloxone or flumazenil are used for reversal, hold in Phase I for continued monitoring from when last reversal dose was given for a minimum of 60 minutes or longer pending the nurse and/or physician discretion of patient condition before discharge to Phase II. Please call the Sedation Physician to re-evaluate and complete post-note for discharge to Phase II area. Do NOT discharge from procedure sedation or Phase 1 until post- sedation evaluation note is complete by procedure /sedation MD Sedation Discharge Instructions to be given to the patient at discharge to home. [facility] Procedure Codes (Charges) Indication for Procedure Indication for procedure: angina
[2025-01-26] MEDS ORDERED: PNEUMOCOCCAL VACCINE (PCV20) 20-VAL CONJ-DIP CRM/PF 0.5 ML SYR IM ONE (12:10)
[2025-01-26] MEDS: ENOXAPARIN INJ 40 MG/0.4 ML SYR SQ SCH (13:18)
--- NOTE | 2025-01-26 16:55 | Hospitalist Consultation ---
"Date of Consultation January 26, 2025 Assessment & Plan (1) S/P cardiac cath: (2) Status post percutaneous coronary intervention (PCI): (3) Benign essential hypertension: (4) Acute pulmonary embolism without acute cor pulmonale: Plan ##S/P cardiac catheterization|PCI with one stent to LAD -monitoring in PCU-->>NSR on monitor -medication management per cardiology-->Lovenox, Ticagrelor -cont tertiary prevention upon d/c with statin, last LDL 116 on 11/16/24, currently on low intensity with Pravastatin and has not tolerated atorvastatin/rosuvastatin in past due to SEs, consideration of PCSK9 inhibitor ##HTN -cont metoprolol, Lisinopril/HCTZ ##Acute pulmonary embolism without acute cor pulmonale -cont Eliquis Supervising Physician Co-Signing Physician Notes During face to face encounter, I obtained a history and physical examination, discussed plan of care with patient and answered any questions. I discussed plan of care with JORDY Billings. I reviewed above note and agree with it except for the following: Patient admitted by cardiology. Patient consulted for medical management. Patient is s/p cardiac cath, currently feeling well. Will monitor overnight and discharge in AM History of Present Illness Reason for Consultation: Medical managment Requesting Physician: Dr. Jaxson Hamm Attending Physician: Jaxson Hamm MD, PhD History of Present Illness Patient is a 64-year-old male with past medical history significant for benign essential hypertension, superficial venous thrombosis of right lower extremity, pulmonary embolism without acute cor pulmonale, erectile dysfunction, and hyperlipidemia. Patient was admitted to [facility] on 11/16/2024 after he had been experiencing exertional dyspnea. He had extensive workup for possible PE versus NSTEMI with subsequent diagnosis of acute pulmonary embolism without acute cor pulmonale, acute superficial venous thrombosis right lower extremity. He was started on Eliquis at time of discharge. He followed up outpatient with stress echocardiogram revealing LAD territory ischemia. He was admitted today per Dr. Hamm's services for cardiac catheterization with subsequent 1 stent placement to the LAD. He currently denies any syncope, near syncope, orthopnea, PND, racing heartbeat, chest pain or palpitations. Allergies Allergy/AdvReac Type Severity Reaction Status Date / Time No Known Drug Allergies Allergy Verified 01/18/25 13:28 Home Medications Medication Instructions Recorded Confirmed Type Medical Marijuana 1 dose PO UD PRN Pain 05/26/23 01/30/25 History tadalafil 10 mg tablet 10 mg PO DAILY PRN sexual activity 07/22/24 01/30/25 Rx #10 tabs lisinopril 20 1 tab PO DAILY 11/16/24 01/30/25 History mg-hydrochlorothiazide 25 mg tablet apixaban 5 mg tablet (Eliquis) 5 mg PO BID #60 tabs 11/24/24 01/30/25 Rx suzetrigine 50 mg tablet (Journavx) 50 mg PO BID #60 tabs 12/02/24 01/30/25 Rx nitroglycerin 0.3 mg sublingual 0.3 mg sublingual Q5M PRN chest 01/06/2501/30 Rx tablet pain #20 tabs metoprolol tartrate 25 mg tablet 12.5 mg (1/2 x 25 mg) PO BID #90 01/27/25 01/30/25 Rx tabs pravastatin 20 mg tablet 20 mg PO DAILY@1700 #90 tabs 01/27/25 01/30/25 Rx ticagrelor 90 mg tablet (Brilinta) 90 mg PO BID #180 tabs 01/27/25 01/30/25 Rx Patient History Medical History Hypertension Arthritis History of skull fracture Surgical History History of colonoscopy History of tooth extraction H/O metal removed from eye History of myringotomy History of tonsillectomy History of laparoscopic cholecystectomy History of total knee replacement History of rotator cuff surgery Family History Father Hypertension Other No family history of adverse response to anesthesia Denies family history of Ovarian cancer Prostate cancer Diabetes Myocardial infarction Breast cancer Lung cancer Colorectal cancer Stroke Social History Smoking Status: Never smoker Tobacco Type: Cigars Second Hand Exposure: No (in the past); Do You Dip or Chew Tobacco: No; Hx Alcohol Use: No Hx Substance Use: Yes Prescribed Medications: Marijuana Preferred Language: Angolan Communication Ability: Effective Visual Impairment: Diminished Hearing Ability: Normal 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 Beliefs That Will Affect Care: None marital status: Current Living Situation: Alone Current Living Situation Comment: with mother current occupational status: employed 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 Sitting comfortably in bed. NAD. SKIN: Normal color without rashes or lesions. Normal turgor. HEENT: Head AT/NC. Buccal mucosa is moist and pink. NECK: No jugular venous distention. No thyroid enlargement. There is no lymphadenopathy. HEART: RRR without m/g/r. LUNGS: Normal inspiratory effort. CTA without w/r/r. ABDOMEN: No guarding or rigidity. Normoactive BS in all four quadrants. Abdomen soft and NT. MSK: No bony gross/deformities throughout. ROM intact. EXTREMITIES: No edema, No peripheral cyanosis. Right radial cath insertion site with dressing present and no bleeding noted. Neuro: CN 2-12 grossly intact. No focal neuro deficits PSYCHIATRIC: Normal affect. Eye contact is good. Speech is normal rate and content. Responses are appropriate. Results & Data Results & Data Vital Signs (Past 12 Hours) Vital Signs Temp Pulse Pulse Resp BP BP Pulse Ox 01/26/25 15:23 36.7 C 84 18 133/90 96 01/26/25 15:01 36.8 C 78 17 131/79 96 01/26/25 14:23 36.7 C 82 16 157/96 H 98 01/26/25 13:58 79 01/26/25 13:23 36.8 C 81 17 127/81 97 01/26/25 12:23 36.8 C 81 16 131/78 97 01/26/25 11:48 37.1 C 77 18 135/85 97 01/26/25 11:33 36.4 C L 78 16 143/90 H 99 01/26/25 11:23 36.4 C L 76 16 143/90 H 99 01/26/25 11:18 36.3 C L 76 16 147/90 H 98 01/26/25 10:30 65 18 153/94 H 100 01/26/25 10:15 71 18 145/88 H 98 01/26/25 10:00 67 18 138/85 92 01/26/25 09:45 68 18 131/82 98 01/26/25 07:00 36.8 C 79 18 143/90 H 97 O2 Del Method 01/26/25 15:23 Room Air 01/26/25 15:01 Room Air 01/26/25 14:23 Room Air 01/26/25 13:58 01/26/25 13:23 Room Air 01/26/25 12:23 Room Air 01/26/25 11:48 Room Air 01/26/25 11:33 Room Air 01/26/25 11:23 Room Air 01/26/25 11:18 Room Air 01/26/25 10:30 Room Air 01/26/25 10:15 Room Air 01/26/25 10:00 Room Air 01/26/25 09:45 Room Air 01/26/25 07:00 Room Air PG Care Time/CCT Total # of Minutes Spent Total Time Spent with Patient: Total time spent is greater than 50% in coordination of care (as documented) at patient's floor/unit and/or counseling patient: Coding Level of Care Code 87629 IN/OBS CONSULT LVL 2,35M Diagnoses S/P cardiac cath Z98.890 Status post percutaneous coronary intervention (PCI) Z98.61 Benign essential hypertension I10 Acute pulmonary embolism without acute cor pulmonale I26.99"
[2025-01-26] MEDS: METOPROLOL TARTRATE 25 MG TAB PO SCH (20:01)
[2025-01-26] MEDS: TICAGRELOR 90 MG TAB PO SCH (20:01)
[2025-01-27 04:54] LABS: Hematocrit (blood only) 42.1 % (42.0-52.0); Hemoglobin 14.9 g/dL (14.0-18.0); Immature Granulocytes # (auto) 0.02 K/uL (0.01-0.20); Immature Granulocytes % (auto) 0.3 %; Mean Corpuscular Hemoglobin 30.7 pg (25.0-34.0); Mean Corpuscular Volume 86.8 fL (80.0-100.0); Platelet Count 236 K/uL (130-400); RDW Standard Deviation 40.7 fL (36.4-46.3); Red Blood Count 4.85 M/uL (4.70-6.10); White Blood Count 7.04 K/ul (4.8-10.8)
[2025-01-27 05:04] VITALS: TEMP 97.7
[2025-01-27 05:10] LABS: Anion Gap 7.0 (3-11); Blood Urea Nitrogen 23.0 mg/dl (6-23); Calcium 9.0 mg/dl (8.6-10.3); Carbon Dioxide 27.0 mmol/L (21-32); Chloride 102.0 mmol/L (98-107); Creatinine Clr Calc Pharmacy 125.7 ml/min; Glucose 111.0 mg/dl (70-99(Fasting)); Potassium 3.9 mmol/L (3.5-5.1); Sodium 136.0 mmol/L (136-145)
[2025-01-27 07:34] VITALS: RESP 20; O2SAT 95
[2025-01-27] MEDS: LISINOPRIL/HCTZ 20/12.5MG 1 TAB TAB PO SCH (08:54)
[2025-01-27] MEDS: APIXABAN 5 MG TABLET PO SCH (08:55)
--- NOTE | 2025-01-27 10:00 | Electrocardiogram Report ---
Test Reason : Blood Pressure : */* mmHG Vent. Rate : 66 BPM Atrial Rate : 66 BPM P-R Int : 194 ms QRS Dur : 88 ms QT Int : 416 ms P-R-T Axes : -8 -25 -4 degrees QTcB Int : 436 ms Normal sinus rhythm Cannot rule out Anterior infarct , age undetermined Abnormal ECG When compared with ECG of 17-Nov-2024 19:02, Vent. rate has decreased by 63 bpm Confirmed by Sandip Turpin ([id number]) on 01/27/2025 9:59:42 AM Referred By: Lawson Vasquez Confirmed By: Sandip Turpin
--- NOTE | 2025-01-27 14:02 | Discharge Summary ---
Date of Service January 27, 2025 Admission HPI Per Admitting Provider See admission H&P Discharge Data Consultations 01/26/25 09:42 Consult Cardiac Rehabilitation Routine 01/26/25 09:43 Consult Hospitalist Routine Procedures Performed Operation Date: 01/26/25 08:00 Actual Procedures p Cineradiography w/Routine Exam - Jaxson Hamm MD, PhD p Drug Eluting Stent SGl Vessel - Jaxson Hamm MD, PhD p Cath, Coronaries ONLY (no LV) - Jaxson Hamm MD, PhD Hospital Course (1) Status post percutaneous coronary intervention (PCI): Patient underwent coronary angiography via the right radial artery approach. This revealed severe stenosis of the LAD. This corresponded to the abnormality noted on stress testing. He underwent PCI with implantation of a drug-eluting stent in the LAD. See full cath report for details. Because he requires Eliquis this was used in place of aspirin as part of his dual antiplatelet therapy. He was also provided ticagrelor for his stent. He did well postprocedure without complications. I saw him the following morning and he was deemed appropriate for discharge. He will remain on the dual antiplatelet therapy with ticagrelor 90 mg p.o. twice daily and Eliquis 5 mg p.o. twice daily. Once he no longer requires Eliquis he will be placed on aspirin 81 mg daily. Patient will follow-up with me in the cardiology office. The request has been placed and the appointment will be scheduled shortly. I also recommend that the patient participate in cardiac rehab and a cardiac rehab consult was requested. Finally, patient's guideline directed medical therapy was optimized. He is on lisinopril, metoprolol to tartrate, and pravastatin. (2) Benign essential hypertension: Blood pressure has been at target. Continue metoprolol to tartrate 12.5 mg p.o. twice daily and lisinopril/HCTZ 20 mg / 25 mg p.o. daily. (3) Acute superficial venous thrombosis of right lower extremity: Patient has been on Eliquis 5 mg p.o. twice daily. This will continue until he completes previously determined therapy duration. After that, if he does not require further Eliquis he will be placed on aspirin 81 mg daily. (4) Hyperlipidemia: Patient is high risk. He had been only on pravastatin 10 mg daily. We will increase this to 20 mg daily and then if tolerated titrate up to achieve target LDL. Plan Follow-up in cardiology office with Dr. Hamm within 1 to 2 weeks. Patient will return to work without restrictions on 02/06/2025. Prior to that time he will not be working. Patient should follow the provided instructions with regard to radial access care. Coding Level of Care Code 52768 INP/OBS DISCH >30 MIN Diagnoses Status post percutaneous coronary intervention (PCI) Z98.61 Benign essential hypertension I10 Acute superficial venous thrombosis of right lower extremity I82.811 Hyperlipidemia E78.5
[2025-01-27 14:03] VITALS: BP 138/85
[2025-01-27 15:55] VITALS: PULSE 76
[2025-01-27] MEDS ORDERED: PRAVASTATIN SOD 20 MG TAB PO SCH (17:00)
--- NOTE | 2025-02-04 15:12 | Cardiac Catheterization ---
[facility] Data: Sampler First Cardiac Status Clinical evaluation leading to the procedure CAD Presenation: Positive Stress Test and Stable angina Anginal Classification: CCS III Heart Failure: NYHA Class: CCS II Cardiogenic Shock within 24 Hours: No Cardiac Arrest within 24 Hours: No Imaging Studies Past 6 Months: Yes Stress Studies Past 6 Months: Yes Stress Echocardiogram: Yes - Positive Coronary Anatomy Dominant: Right Left Main (% Stenosis): Normal LAD (% Stenosis): Proximal (30-40%.), Mid (99% extending from the late proximal to early mid.) and Distal (70%) D1 (% Stenosis): Ostial (99%) Circumflex (% Stenosis): Normal OM1 (% Stenosis): Normal OM2 (% Stenosis): Normal RCA (% Stenosis): Normal R PDA (% Stenosis): Normal R PL1 (% Stenosis): Normal Diagnostic Physicians Name: Jaxson Hamm MD, PhD Closure Device Percutaneous Entry Location: Radial Closure Device: Radial Band Recommendations: Medical Therapy and/or Counseling and PCI without planned CABG PCI Indication: Angina despite med therapy Lesion Segment Name: Mid LAD Culprit Artery: Yes Stenosis Prior to Rx (%): 99% Chronic Total Occlusion: No Pre-Procedure PAUL Flow: 2 Previously Treated Lesion: No Lesion Complexity: Non-High/Non-C Lesion Length (mm): 10 Thrombus Present: No Bifurcation Lesion: Yes Guidewire Across Lesion: Yes Intraprocedure Events Significant Disection: No Perforation: No Cardiac Cath Procedure Full Procedure Date January 26, 2025 Pre-Procedure Diagnosis Pre-Procedure Diagnosis: Angina and Positive Stress Test AUC Score AUC Score: 7 Post-Procedure Diagnosis Post-Procedure Diagnosis: Severe CAD and Successful PCI Procedure(s) Performed Procedure(s) Performed: Coronary Angiography, Drug Eluting Stent and Ultrasound Guided Vascular Access Research Clerk Jaxson Hamm MD, PhD Estimated Blood Loss Estimated Blood Loss: 15 cc Medication(s) Medication(s): Fentanyl, Heparin, Lidocaine 1%, Nicardipine, Nitroglycerin and Versed Summary of Findings Brief description: Patient was brought to the cardiac catheterization suite where he was shaved and prepped in a sterile fashion. Sedated using IV Versed and fentanyl. Soft tissues of the right wrist were anesthetized using 4 mL of 1% Xylocaine. Using the ultrasound for guidance, the right radial artery was accessed and a 6 American radial artery sheath was placed. Patient was provided anticoagulation IV heparin and antispasmodics including nicardipine And nitroglycerin. All catheters were advanced and exchanged over a 0.035 J-tip wire. Left coronary angiography in orthogonal views with a 5 American [place] 4 diagnostic catheter. Right coronary angiography in orthogonal views with a 5 American [place] 4 diagnostic catheter. Diagnostic catheters were removed. Decision was made to proceed with PCI of the mid LAD. ACT was checked and additional heparin was provided as needed throughout the case to maintain therapeutic anticoagulation. 6 American EBU 3.0 guide catheter was used to engage the left main coronary. A Gregory blue coronary guidewire was then advanced through the guide catheter and positioned distally in the LAD under fluoroscopic guidance. Initially attempted to pass a 2.5 x 12 mm trek balloon for predilatation. However, the balloon would not pass and was therefore removed. A GuideLiner guide catheter was advanced over the wire. 2.0 x 12 mm sprinter balloon inflated to 14 mamie for initial predilatation. Balloon removed. 2.5 x 12 mm trek balloon across the lesion with 2 inflations up to 12 mamie to complete predilatation. Implantation of a 2.75 x 18 mm Jimi drug-eluting stent at 15 mamie. Stent balloon then removed. Coronary angiography was performed with a guidewire in place. There was residual coronary disease in the proximal LAD which is nonobstructive and appeared no worse after initial stent implant. Decided against further PCI. Guidewire and guide liner were removed. Final angiographic evaluation was performed in orthogonal views. Guide catheter was removed. Radial artery sheath was removed and hemostasis was obtained using the TR band. Patient was hemodynamically stable and asymptomatic. He was returned to the recovery area. This ended the case. Coronary angiography findings: HTX-[id number]-[id number] vessel bifurcating into LAD and circumflex. No disease. TRT-stgoj-rigyull and transapical. First gives a large septal trunk in the proximal segment. Just after the septal trunk there is a 30 to 40% stenosis. Then, the proximal to mid LAD has a focal calcified 99% stenosis. This extends across the first diagonal. PAUL II flow distal to the lesion. Distally there is a 70% LAD lesion near the apex and the vessel is tortuous. The diagonal branch is long and branching with ostial to proximal stenosis of 99%. LCx-large caliber and nondominant. Provides a large OM1 and a small to medium caliber OM 2. Branch vessels are very tortuous. The circumflex and its branches have mild luminal irregularities. RCA-this is large caliber, dominant, and tortuous. Bifurcates distally into a large PDA and a large multi branching posterolateral. There is no more than mild luminal irregularities in the RCA and its branches. PCI of proximal-mid LAD: 0% residual stenosis post PCI No evidence of dissection or perforation post PCI PAUL-3 flow post PCI Residual proximal LAD stenosis 30-40%. Summary: 1. Severe coronary disease which is nearly occluded in the mid LAD. This corresponds to findings on stress testing and is the culprit for his symptoms. 2. Successful PCI with implantation of a drug-eluting stent in the LAD. 3. Mild residual coronary disease in the major epicardial vessels, severe disease in a small branch vessels, and general tortuosity in the major epicardial vessels. 4. Dual antiplatelet therapy. 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 He will also remain on ticagrelor 90 mg p.o. twice daily. 5. Guideline directed medical therapy for secondary prevention of coronary disease including lisinopril, metoprolol tartrate, and statin. Hemodynamics Rest Ao:: 125/91 mmHg Final Ao: 150/92 mmHg LV: Not performed Recommendations Recommendations: Medical Therapy and/or Counseling and PCI without planned CABG Radiation Exposure (mGy) 3200 mGy, fluoroscopy time 14.9 minutes Contrast (mls) 298 mL Anesthesia Versed 3 mg, Fentanyl 75 mcg IV. Start time 0834, end time 0923 Procedural Complication(s) None Disposition Sampler First Holding/Recovery I attest to the content of the Intraoperative Record and any orders documented therein. Any exceptions are noted below. [facility] [place] Card Cath Procedure Codes Cardiac Catheterization Procedure 1: Cardiovascular Cath Procedures: 09058 Coronaries Therapeutic Services & Ancillary Procedure 1: Cardiovascular Tx and Anc Procedures: 07954 Ultrasonic Guidance Vascular Access Moderate Sedation Procedure 1: Sedation/Anesthesia: 44749 Mod Sedation by the same physician;Init15 Min Child Age 5 & Up (Initial 15 minutes. Start time 0834) Procedure 2: Sedation/Anesthesia: 26922 Mod Sedation by the same physician; Ea Addit ional15 Minutes (Additional 34 minutes, end time 09) Stenting Procedure 1: Cardiovascular Stent Procedures: 46838 Perc transcatheter placement of intracoronary stent(s), with ang (LAD) PG Care Time/CCT Total # of Minutes Spent Total Time Spent with Patient: Total time spent is greater than 50% in coordination of care (as documented) at patient's floor/unit and/or counseling patient:
== END 2025-01-27 16:30 | disposition home or self-care (01) ==
LOC: 2S 06:47 → CC 06:47
PROC: CLB.CCO (2025-01-26 08:00)